=== PATIENT | female | born 1970 | race Caucasian/White ===

== ENCOUNTER → 2018-07-24 | Outpatient (CLI) | payer OTHER ==
--- NOTE | 2018-07-24 13:40 | XR ---
Right hip HISTORY: Right hip pain 2 views of the right hip correlated to prior exam dated 10/11/2012 Mild remodeling of the femoral head. There may be some interval joint space loss. Alignment and bone mineralization are maintained. There is marginal spurring. Probable subchondral geode formation. Smal l crescentic calcification present within the soft tissues laterally could be due to some underlying calcific tendinitis. IMPRESSION: Osteoarthritis. Indeterminate soft tissue calcification, hip MRI may be of benefit.
== END | disposition home or self-care (01) ==
LOC: RADXRYALE 10:21
PROVIDERS: ATTEND Physician Assistant Medical
DX: M16.11 Unilateral primary osteoarthritis, right hip (principal)
CPT/HCPCS: 73502

== ENCOUNTER → 2018-07-30 | Outpatient (CLI) | payer OTHER ==
--- NOTE | 2018-07-30 22:47 | MR ---
EXAMINATION TYPE: MR hip RT wo con DATE OF EXAM: 07/30/2018 COMPARISON: Right hip x-ray July 24, 2018 HISTORY: Rt Hip Pain with Limited Movement x 2-3 years Standard multiplanar, multisequence MRI departmental protocol Multiplanar, multisequence images of the pelvis focusing on the right hip were acquired. Diffusion we ighted imaging was performed. FINDINGS: Bone marrow signal intensity throughout the pelvis including right hip is preserved. No lucero picious edema is present. No serpiginous low T1 signal is identified. Femoral head shapes are symmetr ic and maintained bilaterally. There is asymmetric small right hip joint effusion. No suspicious fluid signal at the level of greate r or lesser trochanter is identified in the right hip. Labrum is suboptimally evaluated without intra -articular contrast injection. Some subchondral cystic change along superior lateral portion is noted . There is symmetric mild to moderate axial joint space loss with mild acetabular spurring bilaterall y. No suspicious groin adenopathy or groin hernia is present bilaterally. Muscle bulk in bilateral thigh s is symmetric and felt within normal limits. Nabothian cysts are scattered throughout the visualized cervix. Retroverted uterus is present with hopkins spected fluid in the endometrial canal. Correlate clinically. Trace free fluid posterior to uterus in the pelvic cul-de-sac axial image 21 for reference is noted. All findings could be better evaluated with pelvic ultrasound if desired. No suspicious bowel dilatation is seen. IMPRESSION: Mild to moderate degenerative changes in right hip as detailed above slightly more promin ent than opposite left hip.
== END | disposition home or self-care (01) ==
LOC: RADMRIMAIN 18:41
PROVIDERS: ATTEND Family Medicine
DX: M16.0 Bilateral primary osteoarthritis of hip (principal)

== ENCOUNTER → 2019-07-17 | Outpatient (CLI) | payer OTHER ==
--- NOTE | 2019-07-18 08:37 | MM ---
Reason for exam: clinical finding. Last mammogram was performed 4 years and 1 month ago. History: Family history of breast cancer in paternal grandmother at age 70. Taking hormonal contraceptives for 15 years. Physical Findings: Nurse did not find any significant physical abnormalities on exam. MG Diagnostic Mammo w CAD LUBNA Bilateral CC and MLO view(s) were taken. Prior study comparison: June 27, 2015, bilateral MG screening mammo w CAD. February 08, 2011, bilateral digital screening mammo w/CAD. The breast tissue is extremely dense which could obscure a lesion on mammography. No suspicious abnormality. These results were verbally communicated with the patient and result sheet given to the patient on 07/17/19. ASSESSMENT: Negative, BI-RAD 1 RECOMMENDATION: Routine screening mammogram of both breasts in 1 year.
== END | disposition home or self-care (01) ==
LOC: RADMAMWWP 15:21
PROVIDERS: ATTEND Family Medicine
DX: N64.4 Mastodynia (principal)
CPT/HCPCS: 77066

== ENCOUNTER → 2019-12-25 | Outpatient (CLI) | payer OTHER ==
--- NOTE | 2019-12-25 15:29 | XR ---
EXAM TYPE: LUMBAR SPINE X RAY SERIES COMPARISON: NONE HISTORY: Pain TECHNIQUE: 4 views are submitted. FINDINGS: Alignment is anatomic. The pedicles are intact. The transverse processes are intact. There is no s pondylolysis or spondylolisthesis. Diffuse osteopenia. Mild facet arthropathy L5-S1 mild degenerativ e disc disease L5-S1. IMPRESSION: 1. Diffuse osteopenia with mild degenerative disc disease and facet arthropathy L5-S1. Correlate with MRI as clinically warranted..
== END | disposition home or self-care (01) ==
LOC: RADXRYALE 15:01
PROVIDERS: ATTEND Physician Assistant Medical
DX: M51.36 Other intervertebral disc degeneration, lumbar region (principal); M85.88 Other specified disorders of bone density and structure, other site; M47.896 Other spondylosis, lumbar region
CPT/HCPCS: 72110

== ENCOUNTER 2020-01-24 19:50 | Emergency (ER) | payer OTHER ==
[2020-01-24 19:56] VITALS: RESP 16
[2020-01-24] MEDS ORDERED: SODIUM CHLORIDE 0.9% 500 ML 500 ML IV STA (20:16)
--- NOTE | 2020-01-24 20:37 | ED ---
General Adult HPI - General Chief complaint: Dizziness Stated complaint: L side numbness,Dizziness Time Seen by Provider: 01/24/20 20:07 Source: patient, RN notes reviewed, old records reviewed Mode of arrival: wheelchair Limitations: no limitations - History of Present Illness Initial comments: 49-year-old female patient with no pertinent past medical history presents to ED for evaluation. Patient reports that at approximately noon she had some paresth esias in her left shoulder and extending down the arm. Patient denies ever having any facial droop or weakness or any strokelike symptoms. She reports that about 2 hours prior to presentation she felt dizzy and somewhat presyncopal for approximately 4 minutes. She reports that this has passed now and she is not having any of those symptoms. She is denying any headache. She denies any chest pain. She denies any current shortness of breath. Denies any other acute complaints. Systemic: Pt denies fatigue, fever/chills, rash. Pt denies weakness, night sweats, weight loss. Neuro: Pt denies headache, visual disturbances, syncope or pre-syncope. HEENT: Pt denies ocular discharge or irritation, otalgia, rhinorrhea, pharyngitis or notable lymphadenopathy. Cardiopulmonary: Pt denies chest pain, SOB, heart palpitations, dyspnea on exertion. Abdominal/GI: Pt denies abdominal pain, n/v/d. : Pt denies dysuria, burning w/ urination, frequency/urgency. Denies new onset urinary or bowel incontinence. MSK: Pt denies myalgia, loss of strength or function in extremities. Neuro: Pt denies new onset weakness. - Related Data Allergies Allergy/AdvReac Type Severity Reaction Status Date / Time No Known Allergies Allergy Verified 01/24/20 19:56 Review of Systems ROS Statement: Those systems with pertinent positive or pertinent negative responses have been documented in the HPI. ROS Other: All systems not noted in ROS Statement are negative. Past Medical History Past Medical History: No Reported History Additional Past Medical History / Comment(s): retina detatchment History of Any Multi-Drug Resistant Organisms: None Reported Additional Past Surgical History / Comment(s): eye surgery Past Psychological History: No Psychological Hx Reported Smoking Status: Former smoker Past Alcohol Use History: Rare Past Drug Use History: None Reported General Exam - General Exam Comments Initial Comments: Constitutional: NAD, AOX3, Pt has pleasant affect. HEENT: NC/AT, trachea midline, neck supple, no lymphadenopathy. Posterior pharynx non erythematous, without exudates. External ears appear normal, without discharge. Mucous membranes moist. Eyes PERRLA, EOM intact. There is no scleral icterus. No pallor noted. Cardiopulmonary: RRR, no murmurs, rubs or gallops, no JVD noted. Lungs CTAB in anterior and posterior gutierrez. No peripheral edema. Abdominal exam: Abdomen soft and non-distended. Abdomen non-tender to palpation in all 4 quadrants. Bowel sounds active in LLQ. No hepatosplenomegaly. No ecchymosis Neuro: CN II-XII intact. No nuchal rigidity. No raccon eyes, no escobedo sign, no hemotympanum. No cervical spinal tenderness. NIH is 0. Repeat neurologic exam also revealed an NIH 0f 0. MSK: No posterior calf tenderness bilaterally, homans sign negative bilaterally. Posterior tibialis and radial pulse +2 bilaterally. Sensation intact in upper and lower extremities. Full active ROM in upper and lower extremities, 5/5 stregnth. Limitations: no limitations Course Vital Signs 01/24/20 19:52 Temperature 98.4 F Pulse Rate 85 Respiratory 16 Rate Blood Pressure 135/72 O2 Sat by Pulse 99 Oximetry Medical Decision Making - Medical Decision Making 49-year-old female patient presents to ED for evaluation of paresthesias in her left shoulder extending down her arm which began approximately noon today after currently resolved. Patient was feeling little bit dizzy earlier as now also resolved. Patient is not reporting any acute complaints. Laboratory investigations were obtained and are noncompressive. Troponin is negative. UA negative. Brain CT negative for Acute process. As x-ray negative for acute process. EKG is nonischemic displayed's sinus rhythm with first-degree AV block. Patient is requesting discharge. Patient will be discharged with outpatient follow-up with primary care provider and return precautions if symptoms worsen anyway. Case discussed with Dr. Espana. - Lab Data Result diagrams: 01/24/20 20:52 01/24/20 20:52 Lab Results 01/24/20 01/24/20 01/24/20 Range/Units 20:52 20:52 20:52 WBC 7.5 (3.8-10.6) k/uL RBC 4.16 (3.80-5.40) m/uL Hgb 12.0 (11.4-16.0) gm/dL Hct 37.6 (34.0-46.0) % MCV 90.3 (80.0-100.0) fL MCH 28.8 (25.0-35.0) pg MCHC 31.9 (31.0-37.0) g/dL RDW 12.8 (11.5-15.5) % Plt Count 208 (150-450) k/uL Neutrophils % 70 % Lymphocytes % 18 % Monocytes % 5 % Eosinophils % 5 % Basophils % 1 % Neutrophils # 5.3 (1.3-7.7) k/uL Lymphocytes # 1.3 (1.0-4.8) k/uL Monocytes # 0.3 (0-1.0) k/uL Eosinophils # 0.4 (0-0.7) k/uL Basophils # 0.1 (0-0.2) k/uL Sodium 137 (137-145) mmol/L Potassium 4.1 (3.5-5.1) mmol/L Chloride 106 (98-107) mmol/L Carbon Dioxide 25 (22-30) mmol/L Anion Gap 6 mmol/L BUN 16 (7-17) mg/dL Creatinine 0.63 (0.52-1.04) mg/dL Est GFR (CKD-EPI)AfAm >90 (>60 ml/min/1.73 sqM) Est GFR (CKD-EPI)NonAf >90 (>60 ml/min/1.73 sqM) Glucose 94 (74-99) mg/dL Calcium 9.2 (8.4-10.2) mg/dL Magnesium (1.6-2.3) mg/dL Total Bilirubin 0.9 (0.2-1.3) mg/dL AST 22 (14-36) U/L ALT 11 (4-34) U/L Alkaline Phosphatase 44 (38-126) U/L Troponin I (0.000-0.034) ng/mL Total Protein 6.7 (6.3-8.2) g/dL Albumin 4.2 (3.5-5.0) g/dL Urine Color Colorless Urine Appearance Clear (Clear) Urine pH 7.5 (5.0-8.0) Ur Specific [place] 1.005 (1.001-1.035) Urine Protein Negative (Negative) Urine Glucose (UA) Negative (Negative) Urine Ketones Negative (Negative) Urine Blood Negative (Negative) Urine Nitrite Negative (Negative) Urine Bilirubin Negative (Negative) Urine Urobilinogen <2.0 (<2.0) mg/dL Ur Leukocyte Esterase Negative (Negative) 01/24/20 01/24/20 Range/Units 20:52 20:52 WBC (3.8-10.6) k/uL RBC (3.80-5.40) m/uL Hgb (11.4-16.0) gm/dL Hct (34.0-46.0) % MCV (80.0-100.0) fL MCH (25.0-35.0) pg MCHC (31.0-37.0) g/dL RDW (11.5-15.5) % Plt Count (150-450) k/uL Neutrophils % % Lymphocytes % % Monocytes % % Eosinophils % % Basophils % % Neutrophils # (1.3-7.7) k/uL Lymphocytes # (1.0-4.8) k/uL Monocytes # (0-1.0) k/uL Eosinophils # (0-0.7) k/uL Basophils # (0-0.2) k/uL Sodium (137-145) mmol/L Potassium (3.5-5.1) mmol/L Chloride (98-107) mmol/L Carbon Dioxide (22-30) mmol/L Anion Gap mmol/L BUN (7-17) mg/dL Creatinine (0.52-1.04) mg/dL Est GFR (CKD-EPI)AfAm (>60 ml/min/1.73 sqM) Est GFR (CKD-EPI)NonAf (>60 ml/min/1.73 sqM) Glucose (74-99) mg/dL Calcium (8.4-10.2) mg/dL Magnesium 2.2 (1.6-2.3) mg/dL Total Bilirubin (0.2-1.3) mg/dL AST (14-36) U/L ALT (4-34) U/L Alkaline Phosphatase (38-126) U/L Troponin I <0.012 (0.000-0.034) ng/mL Total Protein (6.3-8.2) g/dL Albumin (3.5-5.0) g/dL Urine Color Urine Appearance (Clear) Urine pH (5.0-8.0) Ur Specific [place] (1.001-1.035) Urine Protein (Negative) Urine Glucose (UA) (Negative) Urine Ketones (Negative) Urine Blood (Negative) Urine Nitrite (Negative) Urine Bilirubin (Negative) Urine Urobilinogen (<2.0) mg/dL Ur Leukocyte Esterase (Negative) - EKG Data -: EKG Interpreted by Me (and Dr. Espana ) EKG Comments: Ventricular rate 63, HI interval 212, QRS 84, QT/QTc 42/411. Sinus rhythm with first-degree AV block. Low voltage QRS. No concern for acute ischemia times. Disposition Clinical Impression: Paresthesia Disposition: HOME SELF-CARE Condition: Stable Instructions (If sedation given, give patient instructions): Paresthesia (ED) Additional Instructions: Follow-up with primary care provider tomorrow. Return to ER with any worsening symptoms. Is patient prescribed a controlled substance at d/c from ED?: No Referrals: Marian Gomez, [facility] [REFERRING] - 1-2 days
--- NOTE | 2020-01-24 20:39 | CT ---
EXAMINATION TYPE: CT brain wo con DATE OF EXAM: 01/24/2020 COMPARISON: None HISTORY: Dizziness, LT side numbness CT DLP: 1094.4 mGycm Automated exposure control for dose reduction was used. Ventricles and sulci appear normal. There is no mass effect nor midline shift. There is no sign of in tracranial hemorrhage. The calvarium appears normal. IMPRESSION: Normal unenhanced head CT scan.
--- NOTE | 2020-01-24 20:41 | XR ---
EXAMINATION TYPE: XR chest 2V DATE OF EXAM: 01/24/2020 COMPARISON: NONE HISTORY: Short of breath TECHNIQUE: 2 views FINDINGS: Heart and mediastinum are normal. Lungs are clear. Diaphragm is normal. Bony thorax appears normal. Pulmonary vascularity is normal. IMPRESSION: Normal chest.
[2020-01-24 21:03] LABS: Basophils # (A) 0.1 k/uL (0-0.2); Basophils % (A) 1 %; Eosinophils # (A) 0.4 k/uL (0-0.7); Eosinophils % (A) 5 %; HCT 37.6 % (34.0-46.0); Lymphocytes # (A) 1.3 k/uL (1.0-4.8); Lymphocytes % (A) 18 %; MCH 28.8 pg (25.0-35.0); MCHC 31.9 g/dL (31.0-37.0); MCV 90.3 fL (80.0-100.0); Mean Platelet Volume 7.9; Monocytes # (A) 0.3 k/uL (0-1.0); Monocytes % (A) 5 %; Neutrophils # (A) 5.3 k/uL (1.3-7.7); Neutrophils % (A) 70 %; Platelet Count 208 k/uL (150-450); RBC 4.16 m/uL (3.80-5.40); RDW 12.8 % (11.5-15.5); WBC 7.5 k/uL (3.8-10.6)
[2020-01-24 21:09] LABS: African American GFR (CKD) >90 (>60 ml/min/1.73 sqM); Albumin 4.2 g/dL (3.5-5.0); Anion Gap 6 mmol/L; Blood Urea Nitrogen 16 mg/dL (7-17); Calcium 9.2 mg/dL (8.4-10.2); Carbon Dioxide 25 mmol/L (22-30); Chloride 106 mmol/L (98-107); Glucose 94 mg/dL (74-99); Non-African American GFR(CKD) >90 (>60 ml/min/1.73 sqM); Potassium 4.1 mmol/L (3.5-5.1); Sodium 137 mmol/L (137-145); Total Protein 6.7 g/dL (6.3-8.2)
[2020-01-24 21:10] LABS: ALT 11 U/L (4-34); AST 22 U/L (14-36); Alkaline Phosphatase 44 U/L (38-126); Total Bilirubin 0.9 mg/dL (0.2-1.3)
[2020-01-24 22:03] LABS: Appearance,Urine Clear (Clear); Bilirubin,Urine Negative (Negative); Blood,Urine Negative (Negative); Color,Urine Colorless; Glucose,Urine (UA) Negative (Negative); Ketones,Urine Negative (Negative); Leukocyte Esterase,Urine Negative (Negative); Nitrite,Urine Negative (Negative); PH, Urine 7.5 (5.0-8.0); Protein,Urine Negative (Negative); Specific Gravity,Urine 1.005 (1.001-1.035); Urobilinogen,Urine <2.0 mg/dL (<2.0)
[2020-01-24 23:32] VITALS: BP 116/77; PULSE 77; TEMP 98.5
== END 2020-01-24 23:32 | disposition home or self-care (01) ==
LOC: EC 19:50
DX: R20.2 Paresthesia of skin (principal); I44.0 Atrioventricular block, first degree; R42 Dizziness and giddiness; Z87.891 Personal history of nicotine dependence
CPT/HCPCS: 36415; 70450; 71046; 80053; 81003; 83735; 84484; 85025; 93005; 96360; 96361; 99285

== ENCOUNTER 2020-05-03 00:48 | Emergency (ER) | payer OTHER ==
--- NOTE | 2020-05-03 01:34 | XR ---
EXAM: XR Chest, 2 Views CLINICAL HISTORY: ITS.REASON XR Reason: Chest Pain TECHNIQUE: Frontal and lateral views of the chest. COMPARISON: CXR 01/24/20. FINDINGS: Lungs: Unremarkable. No consolidation. Pleural space: Unremarkable. No pleural effusion or pneumothorax. Heart: Unremarkable. No cardiomegaly or pulmonary vascular congestion. Mediastinum: Unremarkable. Bones/joints: Unremarkable. IMPRESSION: No evidence of acute cardiopulmonary disease.
[2020-05-03 01:38] LABS: Basophils # (A) 0.2 k/uL (0-0.2); Basophils % (A) 2 %; Eosinophils # (A) 0.4 k/uL (0-0.7); Eosinophils % (A) 4 %; HCT 36.9 % (34.0-46.0); HGB 12.4 gm/dL (11.4-16.0); Lymphocytes # (A) 2.5 k/uL (1.0-4.8); Lymphocytes % (A) 28 %; MCH 29.8 pg (25.0-35.0); MCHC 33.6 g/dL (31.0-37.0); MCV 88.6 fL (80.0-100.0); Mean Platelet Volume 7.6; Monocytes # (A) 0.5 k/uL (0-1.0); Monocytes % (A) 6 %; Neutrophils # (A) 5.1 k/uL (1.3-7.7); Neutrophils % (A) 58 %; Platelet Count 260 k/uL (150-450); RBC 4.16 m/uL (3.80-5.40); RDW 13.1 % (11.5-15.5); WBC 8.8 k/uL (3.8-10.6)
--- NOTE | 2020-05-03 01:47 | ED ---
Chest Pain HPI - General Chief Complaint: Chest Pain Stated Complaint: Chest Pressure, SOB Time Seen by Provider: 05/03/20 00:55 Source: patient Mode of arrival: ambulatory - History of Present Illness Initial Comments: Tamela is a 50-year-old female presents the ER today for evaluation of chest pain and shortness of breath it's been going on throughout the evening. Patient reports symptoms started at rest, have persisted throughout the evening. She describes it as a sharp discomfort in the retrosternal area. No associated diaphoresis or lightheadedness. No nausea or vomiting. Cough or recent illness. Patient reports that she's been seen in the ER for this a couple times in the past couple years with no formal diagnosis. She has no known heart or lung disease. She is a nonsmoker. - Related Data Allergies Allergy/AdvReac Type Severity Reaction Status Date / Time No Known Allergies Allergy Verified 01/24/20 19:56 Review of Systems ROS Statement: Those systems with pertinent positive or pertinent negative responses have been documented in the HPI. ROS Other: All systems not noted in ROS Statement are negative. EKG Findings - EKG Comments: EKG Findings:: EKG was obtained due to complaint of chest pain, EKG was obtained at 1:02 AM, rate is 64 rhythm is sinus, first-degree AV block is noted. Prolonged at 214, no acute ST elevations or depressions is no evidence of acute ischemia or infarction. Past Medical History Past Medical History: No Reported History Additional Past Medical History / Comment(s): retina detatchment History of Any Multi-Drug Resistant Organisms: None Reported Past Surgical History: Tubal Ligation Additional Past Surgical History / Comment(s): eye surgery Past Psychological History: No Psychological Hx Reported Smoking Status: Never smoker Past Alcohol Use History: Occasional Past Drug Use History: Marijuana General Exam - General Exam Comments Initial Comments: Physical Exam GENERAL: Patient is well-developed and well-nourished. Patient is nontoxic and well- hydrated and is in no distress. HENT: Normocephalic, Atraumatic. EYES: PERRL, EOMI PULMONARY: Unlabored respirations. No audible rales rhonchi or wheezing was noted. CARDIOVASCULAR: There is a regular rate and rhythm without any murmurs gallops or rubs. ABDOMEN: Soft and nontender with normal bowel sounds. SKIN: Skin is clear with no lesions or rashes and otherwise unremarkable. : Deferred NEUROLOGIC: Patient is alert and oriented x3. Moving all extremities spontaneously MUSCULOSKELETAL: Normal extremities with adequate strength and full range of motion. No lower extremity swelling or edema. No calf tenderness. PSYCHIATRIC: Normal psychiatric evaluation. Course Vital Signs 05/03/20 05/03/20 05/03/20 00:56 03:00 04:34 Temperature 98.0 F 98.3 F Pulse Rate 72 62 60 Respiratory 18 16 17 Rate Blood Pressure 127/67 116/66 112/51 O2 Sat by Pulse 99 100 99 Oximetry Chest Pain MDM - MDM the patient was seen and evaluated history was obtained from the patient 50-year-old female presenting to the ER today for evaluation of chest pain and shortness of breath reports she has a history of episodes similar to this she's been evaluated extensively with no diagnosis. She denies any recent illness. Her vital signs are stable EKG is nonischemic Labs are unremarkable aside from mildly elevated d-dimer, CTA was obtained and was negative for PE Results were discussed with patient has been resting comfortably throughout her stay in the ER. Patient is feeling better and would like to be discharged home should follow-up. Disposition Clinical Impression: Atypical chest pain, Elevated d-dimer Disposition: HOME SELF-CARE Condition: Stable Instructions (If sedation given, give patient instructions): Chest Pain (ED) Is patient prescribed a controlled substance at d/c from ED?: No Referrals: Fernie Cruz DO [Primary Care Provider] - 1-2 days
[2020-05-03 01:55] LABS: INR 0.9 (<1.2); Prothrombin Time 9.7 sec (9.0-12.0)
[2020-05-03 02:06] LABS: D-Dimer 0.6 mg/L FEU (<0.60)
[2020-05-03 02:15] LABS: ALT 11 U/L (4-34); AST 22 U/L (14-36); African American GFR (CKD) >90 (>60 ml/min/1.73 sqM); Alkaline Phosphatase 51 U/L (38-126); Anion Gap 4 mmol/L; Blood Urea Nitrogen 17 mg/dL (7-17); Calcium 8.5 mg/dL (8.4-10.2); Carbon Dioxide 27 mmol/L (22-30); Chloride 105 mmol/L (98-107); Glucose 98 mg/dL (74-99); Lipase 110 U/L (23-300); Non-African American GFR(CKD) >90 (>60 ml/min/1.73 sqM); Potassium 3.9 mmol/L (3.5-5.1); Sodium 136 mmol/L (137-145); Total Protein 6.7 g/dL (6.3-8.2)
[2020-05-03 03:05] VITALS: TEMP 98.3
--- NOTE | 2020-05-03 03:19 | CT ---
EXAM: CT Angiography Chest With Intravenous Contrast CLINICAL HISTORY: ITS.REASON CT Reason: chest pain, elevated ddimer TECHNIQUE: Axial computed tomographic angiography images of the chest with intravenous contrast. CTDI is 11.17 mGy and DLP is 270.5 mGy-cm. This CT exam was performed using one or more of the following dose reduction techniques: automated exposure control, adjustment of the mA and/or kV according to patient size, and/or use of iterative reconstruction technique. MIP reconstructed images were created and reviewed. COMPARISON: No relevant prior studies available. FINDINGS: Pulmonary arteries: No evidence for pulmonary embolism. Aorta: No acute findings. No thoracic aortic aneurysm. Lungs: No focal consolidation. No pulmonary mass. No fibrotic interstitial changes. Pleural space: Unremarkable. No significant effusion. No pneumothorax. Heart: Unremarkable. No cardiomegaly. No significant pericardial effusion. Bones/joints: No acute fracture. No dislocation. Soft tissues: Unremarkable. Lymph nodes: Unremarkable. No enlarged lymph nodes. IMPRESSION: 1. No evidence for pulmonary embolism. 2. No focal consolidation. No pleural effusion or pneumothorax.
[2020-05-03 04:35] VITALS: BP 112/51; PULSE 60; RESP 17
== END 2020-05-03 04:35 | disposition home or self-care (01) ==
LOC: EC 00:48
DX: R07.89 Other chest pain (principal); R79.89 Other specified abnormal findings of blood chemistry; R06.02 Shortness of breath
CPT/HCPCS: 36415; 93005; 85379; 83880; 80053; 83690; 83735; 84484; 85025; 85610; 85730; 71046; 71275; 99285; Q9967

== ENCOUNTER → 2023-09-27 | Outpatient (CLI) | payer BC ==
--- NOTE | 2023-09-29 13:48 | MM ---
Reason for Exam: Screening (asymptomatic). Last mammogram was performed 4 year(s) and 3 month(s) ago. Patient History: Menarche at age 15. First Full-Term at age 22. Postmenopausal. Currently using Hormonal Contraceptives, for 15 years. Paternal grandmother had breast cancer, age 70. Risk Values: Shena 5 year model risk: 0.9%. NCI Lifetime model risk: 7.0%. Prior Study Comparison: 02/08/2011 Bilateral Screening Mammogram, [facility]. 06/27/2015 Bilateral Screening Mammogram, [facility]. 07/17/2019 Bilateral Diagnostic Mammogram, [facility]. Tissue Density: The breasts are extremely dense, which lowers the sensitivity of mammography. Findings: Analyzed By CAD. There is no suspicious group of microcalcifications or new suspicious mass in either breast. Overall Assessment: Benign, BI-RAD 2 Management: Screening Mammogram of both breasts in 1 year. . Patient should continue monthly self-breast exams. A clinical breast exam by your physician is recommended on an annual basis. This exam should not preclude additional follow-up of suspicious palpable abnormalities. Note on Shena scores and lifetime risk: 1. A Shena score greater than 3% is considered moderate risk. If this is the case, consider specialist referral to assess eligibility for a risk reducing agent. 2. If overall lifetime risk for the development of breast cancer is 20% or higher, the patient may qualify for future screening with alternating mammogram and breast MRI. Electronically signed and approved by: Thom Strong M.D. Radiologis
== END | disposition home or self-care (01) ==
LOC: RADMAMWWP 16:01
PROVIDERS: ATTEND Family Medicine
DX: Z12.31 Encounter for screening mammogram for malignant neoplasm of breast (principal); Z78.0 Asymptomatic menopausal state; Z80.3 Family history of malignant neoplasm of breast
CPT/HCPCS: 77067

== ENCOUNTER → 2023-09-27 | Outpatient (CLI) | payer BC ==
--- NOTE | 2023-09-28 12:49 | US ---
EXAMINATION TYPE: US thyroid st tissue head/neck DATE OF EXAM: 09/27/2023 COMPARISON: 09/21/2021 CLINICAL INDICATION: Female, 53 years old with history of E07.9 DISORDER OF THYROID, UNSPECIFIED; Pat ient states known nodule GLAND SIZE: Right Lobe: 5.0 x 1.6 1.7 cm Overall Parenchyma: homogeneous Left Lobe: 5.0 x 1.5 x 1.7 cm Overall Parenchyma: homogeneous Isthmus Thickness: 0.2 cm NODULES RIGHT: # of nodules measured on right: 1 1. 0.8 X 0.7 x 0.7 cm, mid mid, solid or almost completely solid, hypoechoic nodule, which is wider than tall, with smooth margins, with peripheral rim calcification. TR 4 nodule. Prior size: 0.8 x 0.6 x 0.8 cm LEFT: # of nodules measured on left: 1 1. Small subcentimeter cystic area seen measuring 0.3 x 0.4 x 0.2cm. ISTHMUS: # of nodules measured in the isthmus: 0 Bilateral neck scanned, there is a 0.8cm lymph node seen with a 0.4cm cortex seen on the right latera l neck. IMPRESSION: Mild thyromegaly. Subcentimeter bilateral thyroid nodules. Subcentimeter right TR 4 thyroid nodule is noted. I recommend continued surveillance of this nodule. 2017 ACR TI-RADS LEVEL: TR-RADS 4 - Moderately Suspicious: Follow if > 1 cm, FNA if > 1.5 cm *Highest TI-RADS level nodule reported
== END | disposition home or self-care (01) ==
LOC: RADUSWWP 16:00
PROVIDERS: ATTEND Family Medicine
DX: E04.2 Nontoxic multinodular goiter (principal)
CPT/HCPCS: 76536

== ENCOUNTER 2024-06-09 21:14 | Emergency (ER) | payer BC ==
--- NOTE | 2024-06-09 21:36 | ED ---
Chest Pain HPI - General Chief Complaint: Chest Pain Stated Complaint: Neck pain, back pain, vomiting Time Seen by Provider: 06/09/24 21:34 Source: patient, RN notes reviewed, old records reviewed Mode of arrival: ambulatory Limitations: no limitations - History of Present Illness Initial Comments: This is a 54-year-old female to the ER for evaluation. Patient presents with chest pain pressure tightness in the left side of the head neck and left chest. Also nausea vomiting this started prior to arrival. Patient states she felt fine last night woke up feeling fine this morning no recent fevers nausea vomiting diarrhea travel history or sick contacts. No history of heart disease non-smoker no issues with shortness of breath. Does take pain medication for chronic hip pain which she did take tonight and did not help MD Complaint: chest pain, other (Left shoulder pain left chest pain left neck pain) -: hour(s) Onset: during rest Pain Location: left chest Pain Radiation: neck Severity: moderate Severity scale (1-10): 6 Quality: tightness, heaviness Consistency: constant Improves With: nothing Worsens With: nothing Context: other (0) Anginal Symptoms: sense of impending doom Other Symptoms: palpitations Treatments Prior to Arrival: none - Related Data Allergies Allergy/AdvReac Type Severity Reaction Status Date / Time No Known Allergies Allergy Verified 06/09/24 21:25 Review of Systems ROS Statement: Those systems with pertinent positive or pertinent negative responses have been documented in the HPI. ROS Other: All systems not noted in ROS Statement are negative. EKG Findings - EKG Comments: EKG Findings:: EKG sinus 84 MI 211 QRS 94 QTc 409 - EKG Results: EKG: interpreted by LAURO Past Medical History Past Medical History: No Reported History Additional Past Medical History / Comment(s): retina detatchment History of Any Multi-Drug Resistant Organisms: None Reported Past Surgical History: Tubal Ligation Additional Past Surgical History / Comment(s): eye surgery Past Psychological History: No Psychological Hx Reported Smoking Status: Never smoker Past Alcohol Use History: Occasional Past Drug Use History: Marijuana General Exam Limitations: no limitations General appearance: alert, in no apparent distress Head exam: Present: atraumatic, normocephalic, normal inspection Eye exam: Present: normal appearance, PERRL, EOMI. Absent: scleral icterus, conjunctival injection, periorbital swelling ENT exam: Present: normal exam, mucous membranes moist Neck exam: Present: normal inspection. Absent: tenderness, meningismus, lymphadenopathy Respiratory exam: Present: normal lung sounds bilaterally. Absent: respiratory distress, wheezes, rales, rhonchi, stridor Cardiovascular Exam: Present: regular rate, normal rhythm, normal heart sounds. Absent: systolic murmur, diastolic murmur, rubs, gallop, clicks GI/Abdominal exam: Present: soft, normal bowel sounds. Absent: distended, tenderness, guarding, rebound, rigid Extremities exam: Present: normal inspection, full ROM, normal capillary refill. Absent: tenderness, pedal edema, joint swelling, calf tenderness Back exam: Present: normal inspection Neurological exam: Present: alert, oriented X3, CN II-XII intact Psychiatric exam: Present: normal affect, normal mood Skin exam: Present: warm, dry, intact, normal color. Absent: rash Course Vital Signs 06/09/24 06/09/24 06/09/24 21:25 22:00 22:30 Temperature 98.2 F Pulse Rate 93 77 69 Respiratory 20 12 13 Rate Blood Pressure 123/84 131/78 125/70 O2 Sat by Pulse 97 99 98 Oximetry 06/09/24 06/09/24 23:00 23:42 Temperature 98.1 F Pulse Rate 67 Respiratory 12 Rate Blood Pressure 117/65 O2 Sat by Pulse 97 Oximetry - Reevaluation(s) Reevaluation #1: 06/09/24 21:47 Medical records reviewed Reevaluation #2: Patient chest pain improved here in the ER Reevaluation #3: Patient informed of results and questions answered Reevaluation #4: Was pt. sent in by a medical professional or institution (, PA, POLICE ARTIST, urgent care, hospital, or fpc...) When possible be specific @ -no Did you speak to anyone other than the patient for history (EMS, parent, family, police, friend...)? What history was obtained from this source @ -no Did you review nursing and triage notes (agree or disagree)? Why? @ -agree Are old charts reviewed (outside hosp., previous admission, EMS record, old EKG, old radiological studies, urgent care reports/EKG's, fpc records)? Report findings @ -yes Differential Diagnosis (chest pain, altered mental status, abdominal pain women, abdominal pain men, vaginal bleeding, weakness, fever, dyspnea, syncope, headache, dizziness, GI bleed, back pain, seizure, CVA, palpatations, mental health, musculoskeletal)? @ -prior EKG interpreted by me (3pts min.). @ -yes X-rays interpreted by me (1pt min.). @ -yes negative for acute disease CT interpreted by me (1pt min.). @ -no U/S interpreted by me (1pt. min.). @ -no What testing was considered but not performed or refused? (CT, X-rays, U/S, labs)? Why? @ -none What meds were considered but not given or refused? Why? @ -none Did you discuss the management of the patient with other professionals (professionals i.e. , PA, POLICE ARTIST, lab, RT, psych nurse, social media specialist, park interpretive specialist, teacher, chief executive officer, case advocate)? Give summary @ -no Was smoking cessation discussed for >3mins.? @ -no Was critical care preformed (if so, how long)? @ -no Were there social determinants of health that impacted care today? How? (Homelessness, low income, unemployed, alcoholism, drug addiction, transportati on, low edu. Level, literacy, decrease access to med. care, nursing home, rehab)? @ -none Was there de-escalation of care discussed even if they declined (Discuss DNR or withdrawal of care, Hospice)? DNR status @ -no What co-morbidities impacted this encounter? (DM, HTN, Smoking, COPD, CAD, Cancer, CVA, ARF, Chemo, Hep., AIDS, mental health diagnosis, sleep apnea, morbid obesity)? @ -none Was patient admitted / discharged? Hospital course, mention meds given and route, prescriptions, significant lab abnormalities, going to OR and other pertinent info. @ - 54 female to ER for chest pain left-sided chest pain neck pain history of neck pain but she states this follow-up with different than normal, she also has bilateral hip pain which she takes [place] for [place] not helping for current pain. Patient presented for the symptoms that she woke up with this morning. Patient has normal testing here in the ER with concern for heart troponin negative EKG negative chest x-ray negative patient will be discharged home feeling well Discharge Undiagnosed new problem with uncertain prognosis? @ -no Drug Therapy requiring intensive monitoring for toxicity (Heparin, Nitro, Insulin, Cardizem)? @ -no Were any procedures done? @ -no Diagnosis/symptom? @ -Chest pain Acute, or Chronic, or Acute on Chronic? @ -Acute Uncomplicated (without systemic symptoms) or Complicated (systemic symptoms)? @ -Complicated Side effects of treatment? @ -no Exacerbation, Progression, or Severe Exacerbation? @ -exacerbation Poses a threat to life or bodily function? How? (Chest pain, [place], [place], pneumonia, PE, COPD, DKA, ARF, appy, cholecystitis, CVA, Diverticulitis, Homicidal, Suicidal, threat to staff... and all critical care pts) @ -yes with chest pain Reevaluation #5: Differential Chest Pain: Stable Angina, Unstable Angina, STEMI, NSTEMI Aortic Dissection, Pneumothorax, Musculoskeletal, Esophageal Spasm GERD, Cholecystitis, Pancreatitis, Zoster, this is not meant to be an all-inclusive list. Chest Pain MDM - MDM 54 female to ER for chest pain left-sided chest pain neck pain history of neck pain but she states this follow-up with different than normal, she also has bilateral hip pain which she takes [place] for [place] not helping for current pain. Patient presented for the symptoms that she woke up with this morning. Patient has normal testing here in the ER with concern for heart troponin negative EKG negative chest x-ray negative patient will be discharged home feeling well Disposition Clinical Impression: Atypical chest pain, Neck pain on left side Disposition: HOME SELF-CARE Condition: Good Instructions (If sedation given, give patient instructions): Chest Pain (ED), Neck Pain (ED) Is patient prescribed a controlled substance at d/c from ED?: No Referrals: Fernie Cruz DO [Primary Care Provider] - 1-2 days Time of Disposition: 23:30
[2024-06-09] MEDS: ONDANSETRON 4 MG/2 ML VIAL IVP STA (21:52)
[2024-06-09] MEDS: KETOROLAC 15 MG/ML 1 ML VIAL IVP STA (21:53)
[2024-06-09] MEDS: SODIUM CHLORIDE 0.9% 1,000 ML IV STA (21:57)
[2024-06-09 21:58] LABS: Basophils % (A) 0 %; Eosinophils # (A) 0.1 k/uL (0-0.7); Eosinophils % (A) 1 %; HCT 40.9 % (34.0-46.0); HGB 13.3 gm/dL (11.4-16.0); Lymphocytes % (A) 8 %; MCH 29.5 pg (25.0-35.0); MCHC 32.6 g/dL (31.0-37.0); MCV 90.4 fL (80.0-100.0); Mean Platelet Volume 7.7; Monocytes # (A) 0.3 k/uL (0-1.0); Monocytes % (A) 2 %; Neutrophils # (A) 11.5 k/uL (1.3-7.7); Neutrophils % (A) 88 %; Platelet Count 272 k/uL (150-450); RBC 4.52 m/uL (3.80-5.40); RDW 13.4 % (11.5-15.5)
[2024-06-09] MEDS: HYDROmorphone 1 MG/ML 1 ML SYRINGE IVP STA (21:58)
[2024-06-09 22:15] LABS: INR 0.9 (<1.2); Partial Thromboplastin Time 22.7 sec (22.0-30.0); Prothrombin Time 10.6 sec (10.0-12.5)
[2024-06-09 22:29] LABS: ALT 17 U/L (4-34); AST 28 U/L (14-36); African American GFR (CKD) >90 (>60 ml/min/1.73 sqM); Albumin 4.8 g/dL (3.5-5.0); Alkaline Phosphatase 56 U/L (38-126); Anion Gap 9 mmol/L; Blood Urea Nitrogen 16 mg/dL (7-17); Calcium 9.4 mg/dL (8.4-10.2); Carbon Dioxide 23 mmol/L (22-30); Chloride 106 mmol/L (98-107); Glucose 117 mg/dL (74-99); Lipase 69 U/L (23-300); Magnesium 2.1 mg/dL (1.6-2.3); Non-African American GFR(CKD) >90 (>60 ml/min/1.73 sqM); Potassium 4.3 mmol/L (3.5-5.1); Sodium 138 mmol/L (137-145); Total Bilirubin 2.1 mg/dL (0.2-1.3); Total Protein 7.5 g/dL (6.3-8.2)
[2024-06-09 22:36] LABS: NT-Pro-B-Type Natriuretic Pept 96 pg/mL
[2024-06-09 23:23] VITALS: BP 117/65; PULSE 67; RESP 12
--- NOTE | 2024-06-09 23:28 | XR ---
EXAM: XR Chest, 2 Views CLINICAL HISTORY: ITS.REASON XR Reason: Chest Pain TECHNIQUE: Frontal and lateral views of the chest. COMPARISON: Chest x-ray of 05/03/2020. FINDINGS: Lungs: Unremarkable. No consolidative changes. Pleural space: Unremarkable. No pneumothorax. No pleural effusions. Heart: Heart is normal in size. No cardiomegaly. Mediastinum: Unremarkable. Normal mediastinal contour. Bones/joints: Dextroscoliosis of the thoracic spine. Osseous structures and soft tissues are unremarkable. No acute fracture. IMPRESSION: No consolidative changes or pleural effusions, unchanged.
[2024-06-09] MEDS: HYDROmorphone 0.5 MG/0.5 ML SYRINGE IVP STA (23:36)
[2024-06-09 23:44] VITALS: TEMP 98.1
== END 2024-06-09 23:44 | disposition home or self-care (01) ==
LOC: EC 21:14
DX: R07.89 Other chest pain (principal); M54.2 Cervicalgia
CPT/HCPCS: 99285; 96374; 96375 ×2; 96376; 96361; 36415; 93005; 85379; 83880; 80053; 83690; 83735; 84484; 85025; 85610; 85730; 71046; J2405; J1171 ×2; J1885